=== PATIENT | female | born 1995 | race Two or more races ===

== ENCOUNTER 2025-04-03 08:53 | Emergency (ER) | payer SELFPAY ==
[2025-04-03] VITALS (20 sets, daily range): BP systolic 93–128; BP diastolic 58–83; PULSE 52–77; RESP 12–27; TEMP 36.8; O2SAT 99–100
--- NOTE | 2025-04-03 09:14 | XR_ITS ---
WS: [id number] XR chest 1V portable [id number] REASON FOR EXAM: dyspnea/cough FINDINGS: The heart and the mediastinum are within normal limits. Calcified granulomas disease bilaterally. No acute pulmonary parenchymal or pleural abnormality. No significant abnormality of the bony thorax. XR/XR chest 1V portable [id number] IMPRESSION: No significant chest abnormality.
--- NOTE | 2025-04-03 09:14 | ECG_ITS ---
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 Measurements Intervals [place] Rate: 69 P: 80 IA: 142 QRS: 87 QRSD: 78 T: 79 QT: 401 QTc: 430 Interpretive Statements SINUS RHYTHM No previous ECG available for comparison Electronically Signed On 04-05-2025 14:15:34 WEIGHT GUESSER by Macy De La Torre M.D. [email or web address]
[2025-04-03 09:34] LABS: Hematocrit 41.2 % (36-47); Hemoglobin 13.80 g/dL (11.27-16.99); Mean Corpuscular HGB Conc 33.5 g/dL (30-55); Mean Corpuscular Hemoglobin 29.4 pg (27-33); Mean Corpuscular Volume 87.8 fl (85-98); Nucleated Red Blood Cells % 0 %; Platelet Count 374 10^3/cmm (157-399); Red Blood Count 4.69 10^6/uL (3.85-5.65); White Blood Count 8.71 10^3/uL (3.29-11.43)
[2025-04-03 09:54] LABS: HCG, Serum Qual Negative (Negative)
[2025-04-03 09:58] LABS: Alanine Aminotransferase 10 U/L (0-33); Albumin Level 4.6 g/dL (3.5-5.2); Alkaline Phosphatase 104 U/L (35-105); Anion Gap 13.2 (5-19); Aspartate Amino Transferase 12 U/L (0-32); Blood Urea Nitrogen 7 mg/dL (6-20); Calcium 9.4 mg/dL (8.5-10.5); Carbon Dioxide 24 mmol/L (22-29); Chloride 105 mmol/L (98-107); Globulin 2.9 g/dL (1.3-4.6); Glucose 95 mg/dL (65-115); Osmolality Calculated 284 mOsm/kg (285-295); Potassium 4.2 mmol/L (3.5-5.1); Sodium 138 mmol/L (136-145); Total Protein 7.5 g/dL (6.6-8.7)
[2025-04-03 10:21] LABS: Glucose Urine UA Negative (Normal); Nitrate Urine Negative (Negative); Specific Gravity, Urine 1.009 (1.005-1.030)
[2025-04-03 10:23] LABS: Add Urine Microscopic? YES
--- NOTE | 2025-04-03 12:02 | ED_ITS ---
HPI - Syncope 2 General: Chief Complaint: Syncope Stated Complaint: Dizzy Lightheaded passed out hit head Time Seen by Provider: 04/03/25 09:13 History of Present Illness: 30-year-old female presents emergency ro om complaints of dizziness lightheadedness folic she nearly was in a pass out last night she got into take a shower this morning and had a brief near syncopal episode. There is no vomiting. She has a bit of a headache. No direct trauma. Associated symptoms: Reports vertigo; Deny abdominal pain, chest pain or fever(s) Related Data Previous Rx's ?Medication ?Instructions ?Recorded meclizine 25 mg tablet 25 mg PO QID PRN dizziness # 14 tabs 04/03/25 Allergies Allergy/AdvReac Type Severity Reaction Status Date / Time Iodinated Contrast Media Allergy Unknown Verified 04/03/25 09:20 morphine Allergy Unknown Verified 04/03/25 09:20 Penicillins Allergy Unknown Verified 04/03/25 09:15 Review of Systems 2 Const: Denies: fever(s) or chills Card: Denies: chest pain Resp: Denies: dyspnea GI: Denies: abdominal pain : Denies: dysuria, urinary frequency or urinary urgency Musc: Denies: neck pain or back pain Skin/Breast: Denies: rash Neuro: Reports: vertigo Physical Exam 2 Const: GENERAL APPEARANCE: cooperative ORIENTATION/CONSCIOUSNESS: Yes awake, Yes oriented to person, Yes oriented to place and Yes oriented to time HENMT: COMMON NORMALS: normocephalic, atraumatic and hearing grossly normal bilaterally HEAD & SCALP: normocephalic and atraumatic Eye: OTHER: Pupils equal react light extraocular is intact. Mild right sided nystagmus Resp: COMMON NORMALS: normal respiratory effort, No retractions, No use of accessory muscles and clear to auscultation bilaterally AUSCULTATION: clear to auscultation bilaterally Cardio: COMMON NORMALS: regular rate, regular rhythm and No murmurs present (Cardio) RATE: regular rate RHYTHM: regular rhythm GI: COMMON NORMALS: Soft to palpation and No hepatosplenomegaly present A USCULTATION: Yes normoactive bowel sounds PALPATION: Yes Soft to palpation, No Tenderness to palpation present (GI), No Guarding due to palpation present (GI) and Yes No hepatosplenomegaly present Extremity: COMMON NORMALS: normal to inspection, capillary refill normal, no clubbing, cyanosis or edema, no calf tenderness and no pedal edema Neuro: SENSORIUM/ORIENTATION: Yes oriented to person, Yes oriented to place and Yes oriented to time OTHER: Neurologically intact no focal neurologic deficits Skin: COMMON NORMALS: no rashes or lesions noted GENERAL SKIN EXAM: no rashes or lesions noted Course 2 Vital Signs: Vital signs: Vital Signs Temperature 98.3 F 04/03/25 09:16 Pulse Rate 62 04/03/25 11:38 Respiratory Rate 17 04/03/25 11:15 Blood Pressure 112/74 04/03/25 11:38 Pulse Oximetry 100 04/03/25 11:38 Oxygen Delivery Me thod Room Air 04/03/25 09:16 MDM - Syncope Medical Decision Making Feeling somewhat better with medications given after IV fluids. She has reproducible dizziness. Treat for labyrinthitis give meclizine to use as needed. Orthostatics were normal. Lab Data 04/03/25 09:24 04/03/25 09:24 Radiology Impressions Chest X-Ray 04/03/25 09:14 IMPRESSION: No significant chest abnormality. Laboratory Results WBC 8.71 10^3/uL (3.29-11.43) 04/03/25 09:24 RBC 4.69 10^6/uL (3.85-5.65) 04/03/25 09:24 Hgb 13.80 g/dL (11.27-16.99) 04/03/25 09:24 Hct 41.2 % (36-47) 04/03/25 09:24 MCV 87.8 fl (85-98) 04/03/25 09:24 MCH 29.4 pg (27-33) 04/03/25 09:24 MCHC 33.5 g/dL (30-55) 04/03/25 09:24 RDW 12.0 % (12.1-15.1) L 04/03/25 09:24 Plt Count 374 10^3/cmm (157-399) 04/03/25 09:24 MPV 9.6 fL (7.4-10.4) 04/03/25 09:24 Neut % (Auto) 61.1 % 04/03/25 09:24 Lymph % (Auto) 29.7 % 04/03/25 09:24 [place] % (Auto) 6.4 % 04/03/25 09:24 Eos % (Auto) 2.1 % 04/03/25 09:24 Baso % (Auto) 0.6 % 04/03/25 09:24 Neut # (Auto) 5.32 10^3/uL (1.8-7.7) 04/03/25 09:24 Lymph # (Auto) 2.6 10^3/uL (0.8-4.8) 04/03/25 09:24 [place] # (Auto) 0.6 10^3/uL (0.2-0.9) 04/03/25 09:24 Eos # (Auto) 0.2 10^3/uL (0.0-0.8) 04/03/25 09:24 Baso # (Auto) 0.1 10^3/uL (0.0-0.1) 04/03/25 09:24 Nucleated RBC % (auto) 0 % 04/03/25 09:24 Nucleated RBCs # 0.0 /100WBC 04/03/25 09:24 Sodium 138 mmol/L (136-145) 04/03/25 09:24 Potassium 4.2 mmol/L (3.5-5.1) 04/03/25 09:24 Chloride 105 mmol/L (98-107) 04/03/25 09:24 Carbon Dioxide 24 mmol/L (22-29) 04/03/25 09:24 Anion Gap 13.2 (5-19) 04/03/25 09:24 BUN 7 mg/dL (6-20) 04/03/25 09:24 Creatinine 0.7 mg/dL (0.5-0.9) 04/03/25 09:24 GFR Calculation 97.6 mL/min (90-130) 04/03/25 09:24 Glucose 95 mg/dL (65-115) 04/03/25 09:24 Calculated Osmolality 284 mOsm/kg (285-295) L 04/03/25 09:24 Calcium 9.4 mg/dL (8.5-10.5) 04/03/25 09:24 Total Bilirubin 0.3 mg/dL (0.15-1.2) 04/03/25 09:24 AST 12 U/L (0-32) 04/03/25 09:24 ALT 10 U/L (0-33) 04/03/25 09:24 Alkaline Phosphatase 104 U/L (35-105) 04/03/25 09:24 Total Protein 7.5 g/dL (6.6-8.7) 04/03/25 09:24 Albumin 4.6 g/dL (3.5-5.2) 04/03/25 09:24 Globulin 2.9 g/dL (1.3-4.6) 04/03/25 09:24 HCG, Qual Negative (Negative) 04/03/25 09:24 Urine Color Yellow (Yellow) 04/03/25 10:05 Urine Appearance Clear (CLEAR) 04/03/25 10:05 Urine pH 8.5 (5-7) A 04/03/25 10:05 Ur Specific [place] 1.009 (1.005-1.030) 04/03/25 10:05 Urine Protein Negative (Negative) 04/03/25 10:05 Urine Glucose (UA) Negative (Normal) 04/03/25 10:05 Urine Ketones Negative (Negative) 04/03/25 10:05 Urine Blood Negative (Negative) 04/03/25 10:05 Urine Nitrate Negative (Negative) 04/03/25 10:05 Urine Bilirubin Negative (Negative) 04/03/25 10:05 Urine Urobilinogen 0.2 mg/dL (Negative) 04/03/25 10:05 Ur Leukocyte Esterase Negative (Negative) 04/03/25 10:05 Urine RBC 0-2 /hpf (0-2) 04/03/25 10:05 Urine WBC 0-5 /hpf (0-5) 04/03/25 10:05 Ur Squamous Epith Cells 0-5 /hpf (0-5) 04/03/25 10:05 Amorphous Sediment Not Reportable 04/03/25 10:05 Urine Bacteria None seen /hpf (NONE) 04/03/25 10:05 Hyaline Casts 0.40 /lpf 04/03/25 10:05 All radiology interpretation(s) finalized by discharge EKG Data EKG 1: I personally reviewed and interpreted this EKG as follows: Interpretation: EKG 04/03/2025 9:23 AM sinus rhythm rate of 69. SD interval 142 QTc [address] changes noted. No EKGs for previous comparison. Discharge Plan Discharge Patient Disposition: Home Clinical Impression: Syncope, Labyrinthitis Condition: Stable Prescriptions: New meclizine 25 mg tablet 25 mg PO QID PRN (Reason: dizziness) Qty: 14 0RF Discharge Orders: Discharge ED (Routine); Ordered 04/03/25 Ordered By: Saad Mathias Discharge Diet: Usual diet Discharge Activity: Increase activity as tolerated Patient Instructions: Opioid Safety, Pain Management, Patient Portal & Andrew Instructions Activity Restrictions/Additional Instructions: Thank you for choosing [facility] for your healthcare needs today. It is very important that you follow up as instructed or that you return to the Emergency Department should you have concerns or if your condition changes or worsens in any way. Emergency department visits are focused on emergent conditions, in some cases you may require further evaluation on an outpatient basis. You are seen emergency room after a syncopal episode with dizziness. Your exam was normal.. Laboratory tests are normal as well will discharge you home with labyrinthitis. Have you follow-up with your primary care doctor. You can use meclizine as needed for dizziness and (Please note that included in your discharge packet is information concerning opioid safety and pain management. This information is given to all patients were discharged from the ER regardless of their discharge diagnosis or the medicines they usually take or are prescribed.) Print Language: Kazakh Coding Level of Care Code ED Respiratory Coordinator for Marcelo Moscoso
== END 2025-04-03 11:39 | disposition home or self-care (01) ==
PROVIDERS: Emergency Provider Family Medicine
DX: R55 Syncope and collapse (principal); H83.09 Labyrinthitis, unspecified ear
CPT/HCPCS: 36415; 71045; 80053; 81001; 84703; 85025; 93005; 96360; 96361; 99285; J7030